=== PATIENT | male | born 1940 | race Asian ===

== ENCOUNTER 2022-03-08 07:56 | Emergency (ER) | payer MEDICARE, OTHER ==
[~2022-03-08] VITALS: Ht 170.2 cm; Wt 66.5 kg
[2022-03-08 08:06] VITALS: BP 180/98
--- NOTE | 2022-03-08 08:11 | NUR ---
PT AMBULATED TO ER BED 8
--- NOTE | 2022-03-08 08:59 | NUR ---
MD SINGH AT BEDSIDE
[2022-03-08] MEDS ORDERED: KETOROLAC 60 MG/2 ML VIAL IM ONE ×2 (09:05→11:00)
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
[2022-03-08] MEDS ORDERED: PRED20TA5 PO (10:52)
[2022-03-08] MEDS ORDERED: ACET-8386 PO (10:52)
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
--- NOTE | 2022-03-08 11:17 | NUR ---
The patient's care was reviewed and supervised by Honey Hawley RN.
== END 2022-03-08 11:16 | disposition home or self-care (01) ==
LOC: MED 07:56
DX: T59.811A Toxic effect of smoke, accidental (unintentional), initial encounter (principal); R05.9 Cough, unspecified; R51.9 Headache, unspecified; I10 Essential (primary) hypertension; Z98.890 Other specified postprocedural states; Y92.89 Other specified places as the place of occurrence of the external cause
CPT/HCPCS: 82803; 96372; 99283; J1885